=== PATIENT | female | born 1965 | race Caucasian/White ===

== ENCOUNTER 2017-01-07 16:33 | Emergency (ER) | payer BC, OTHER ==
[~2017-01-07] VITALS: Wt 99.0 kg
--- NOTE | 2017-01-07 18:04 | RADRPT ---
PROCEDURE: CT brain without contrast CLINICAL INDICATION: Headaches. Fall TECHNIQUE: A CT of the brain was performed utilizing axial sections from the skull base through th e vertex without contrast. Sagittal and coronal images were also reformatted. The exam CTDIvol = 43. 95 mGy and DLP = 630.20 mGy-cm. COMPARISON: None available FINDINGS: No acute intracranial hemorrhage is identified. There is no mass effect or midline shift. No extra -axial fluid collection is seen. The ventricles and sulci are within normal limits for size and con figuration. The density of the brain is within normal limits. Hansen-white differentiation is preser marianna. The osseous structures are unremarkable. The mastoid air cells and visualized paranasal sinuses are clear. RPTAT:HJJR IMPRESSION: Unremarkable noncontrast CT of the brain. Physician James Date Time Electronically viewed and signed by Physician James on 01/07/2017 18:03 /
[2017-01-07] MEDS ORDERED: IBUP800T25 PO (18:19)
--- NOTE | 2017-01-07 18:19 | ERD ---
ER Documentation Chief Complaint Date/Time DATE: 01/07/17 TIME: 18:18 Chief Complaint BILATERAL KNEE PAIN AFTER FALL HPI This is a 51-year-old female presents to the emergency room after ground level fall. The patient is complaining of pain in the back of her head. She denies any syncope or loss of consciousness. The patient states that she was able to ambulate after the fall and came to the ER for evaluation. She denies any radiation of her pain, headache, blurred vision or any blood thinners. ROS All systems reviewed and are negative except as per history of present illness. PMhx/Soc Medical and Surgical Hx: Unable to obtain Hx Alcohol Use: No Hx Substance Use: No Hx Tobacco Use: No Smoking Status: Never smoker Physical Exam Vitals Vital Signs Date Time Temp Pulse Resp B/P Pulse Ox O2 Delivery O2 Flow Rate FiO2 01/07/17 16:35 98.0 87 19 136/83 99 Physical Exam Const: No acute distress Head: Atraumatic Eyes: Normal Conjunctiva ENT: Normal External Ears, Nose and Mouth. Neck: Full range of motion..~ No meningismus. Resp: Clear to auscultation bilaterally Cardio: Regular rate and rhythm, no murmurs Abd: Soft, non tender, non distended. Normal bowel sounds Skin: No petechiae or rashes Back: No midline or flank tenderness Ext: No cyanosis, or edema Neur: Awake and alert Psych: Normal Mood and Affect Procedures/MDM CT head without: No acute process This 51-year-old female presents to the emergency room for evaluation of pain in the back of her head after a ground-level fall where she tripped. The patient was ambulatory after she fell. She denies any loss of consciousness, was not on any blood thinners. My evaluation she was seen that she had pain in the back of her head. A CT of the head was obtained which does not show any skull fractures or any acute intracranial bleed. The patient is alert and oriented to person place and time. The patient will be discharged home with a prescription for Motrin for acute scalp contusion. Departure Diagnosis: Primary Impression: Fall with no significant injury Additional Impression: Closed head injury Condition: Stable JAKE NORTON DO January 07, 2017 18:19
== END 2017-01-07 18:33 | disposition home or self-care (01) ==
LOC: FTE 16:33
DX: S09.90XA Unspecified injury of head, initial encounter (principal); R51 Headache; W18.39XA Other fall on same level, initial encounter; Y92.9 Unspecified place or not applicable
CPT/HCPCS: 70450; Z7502

== ENCOUNTER 2017-10-31 17:13 | Emergency (ER) | END 2017-10-31 21:48 | disposition home or self-care (01) ==

== ENCOUNTER 2018-08-11 10:19 | Emergency (ER) | payer OTHER ==
[~2018-08-11] VITALS: Wt 99.9 kg
[~2018-08-11 10:19] MED LIST: BACL10TA PO; IBUP800T48 PO; NAPR-985 PO
[2018-08-11] MEDS ORDERED: IPRATROPIUM (NEB) 0.5 MG/2.5 ML AMP NEB STA (10:52)
[2018-08-11] MEDS ORDERED: ALBUTEROL 0.083% (NEB) 2.5 MG/3 ML AMP NEB STA (10:52)
[2018-08-11] MEDS ORDERED: AZIT250T PO (12:17)
[2018-08-11] MEDS ORDERED: BENZ-6 PO (12:17)
[2018-08-11] MEDS ORDERED: CEPASTAT LOZENGE MT ONE (12:30)
[2018-08-11 12:42] VITALS: BP 147/82; PULSE 86; RESP 20
[2018-08-11] MEDS ORDERED: BENZ1LOZ52 MM (12:52)
--- NOTE | 2018-08-11 12:58 | ERD ---
ER Documentation Chief Complaint Chief Complaint COUGH X 3 weeks HPI Patient is a 53-year-old female with a history of hypertension, DM type II, hyperlipidemia presents ER for concerns of a dry cough times 3 weeks. Patient also reports throat irritation. Patient denies any productive cough, chest pain, shortness of breath or loss of consciousness. Patient denies any hemoptysis. Patient denies any nausea, vomiting, abdominal pain or diarrhea. Patient denies any leg swelling. Patient denies recent travel. Patient does report other sick contacts at home. Patient reports any OTC concert with no alleviation of symptoms. ROS All systems reviewed and are negative except as per history of present illness. Medications Home Meds Active Scripts Benzocaine/Menthol* (Cepacol* Sore Throat Lozenges) 1 Each Lozenge, 1 EACH MM q2h PRN for SORE THROAT, #20 LOZENGE Prov:TIANA BLAIR PA-C 08/11/18 Benzonatate* (Tessalon Perle*) 100 Mg Capsule, 100 MG PO Q8H PRN for COUGH, #20 CAP Prov:TIANA BLAIR PA-C 08/11/18 Azithromycin* (Zithromax*) 250 Mg Tablet, 250 MG PO .ZPACK DIRECTED, #6 TAB TAKE 500 MG (2 TABS) THE FIRST DAY THEN 250 MG (1 TAB) DAYS 2-5 Prov:TIANA BLAIR PA-C 08/11/18 Naproxen* (Naprosyn*) 500 Mg Tablet, 500 MG PO BID PRN for PAIN AND/OR INFLAMMATION for 5 Days, #10 TAB Prov:JAIME SERRATO MD 10/31/17 Baclofen* (Baclofen*) 10 Mg Tablet, 10 MG PO Q8 for MUSCLE SPASMS, #14 TAB Prov:JAIME SERRATO MD 10/31/17 Ibuprofen* (Motrin*) 800 Mg Tab, 800 MG PO Q6H PRN for PAIN AND OR ELEVATED TEMP, #30 TAB Prov:JAKE NORTON DO 01/07/17 Allergies Allergies: Coded Allergies: No Known Allergy (Unverified , 10/31/17) PMhx/Soc History of Surgery: No Anesthesia Reaction: No Hx Neurological Disorder: No Hx Respiratory Disorders: No Hx Cardiac Disorders: No Hx Psychiatric Problems: No Hx Miscellaneous Medical Probl: Yes (diabetes type II) Hx Alcohol Use: No Hx Substance Use: No Hx Tobacco Use: No FmHx Family History: No diabetes Physical Exam Vitals Vital Signs Date Temp Pulse Resp B/P (MAP) Pulse Ox O2 O2 Flow FiO2 Time Delivery Rate 08/11/18 97 Room Air 12:59 08/11/18 99.0 86 20 147/82 94 Room Air 12:42 (103) 08/11/18 79 22 98 21 11:14 08/11/18 98.1 82 20 159/72 98 10:20 (101) Physical Exam GENERAL: Well-developed, well-nourished female. Appears in no acute distress. HEAD: Normocephalic, atraumatic. EYES: Pupils are equally reactive bilaterally. EOMs grossly intact. No conjunctival erythema. ENT: Moist mucous membranes. No uvula deviation. No kissing tonsils. NECK: Supple. No meningismus. Normal range of motion of the neck. LUNG: Actively coughing, dry in nature. Coarse breath sounds. No abdominal retractions, nasal flaring, no tripoding. No respiratory distress. No wheezing. HEART: Regular rate and rhythm. No murmurs, rubs or gallops. EXTREMITIES: Equal pulses bilaterally. No peripheral clubbing, cyanosis or edema. No unilateral leg swelling. No pedal swelling bilaterally. NEUROLOGIC: Alert and oriented. Moving all four extremities without any difficulty. Normal speech. Steady gait. SKIN: Normal color. Warm and dry. No rashes or lesions. Results 24 hrs Current Medications Medications Dose Sig/Lee Start Time Status Last (Trade) Ordered Route PRN Stop Time Admin Dose Reason Admin Albuterol 5 mg ONCE STAT 08/11/18 DC 08/11/18 (Proventil NEB 10:52 11:14 0.083% (Neb)) 08/11/18 10:56 Ipratropium 1 mg ONCE STAT 08/11/18 DC 08/11/18 [place] NEB 10:52 11:14 (Atrovent 08/11/18 0.02% 10:56 (Neb)) Phenol 1 lozenge ONCE ONCE 08/11/18 DC 08/11/18 (Cepastat MT 12:30 12:53 Lozenge) 08/11/18 12:31 Procedures/MDM ED COURSE: The patient was stable throughout ED course. I kept the patient and/or family informed of laboratory and diagnostic imaging results throughout the ED course. DIAGNOSTIC IMAGING: Read by radiologist. Patient: PATRICK PIERCE : 1965 Age: 53 Sex: F MR #: [id number] DOS: 08/11/18 1052 Ordering MD: TIANA BLAIR PA-C Location: [facility] Room/Bed: PROCEDURE: XR Chest. CLINICAL INDICATION: Cough for 3 weeks. TECHNIQUE: Single frontal view. COMPARISON: None. FINDINGS: The lungs are clear. The heart size is normal. There is no pleural effusion. There is no pneumothorax. IMPRESSION: 1. Normal chest radiograph. RPTAT: QQ .Enzo Castro MD, Date Time Electronically viewed and signed by .Enzo Castro MD, MD on 08/11/2018 11:25 .R/ CC: TIANA BLAIR PA-C [phone] PROCEDURES: None. MEDICATIONS GIVEN: Albuterol, ipratropium Patient tolerated medication well with no adverse reactions. MEDICAL DECISION MAKING: This is a 53-year-old female with a past medical history of hypertension, DM type II, hyperlipidemia presents ER for concerns of dry cough times 3 weeks.. Patient was afebrile. Patient was not hypoxic. Patient denied recent travel. Cardiac exam was normal. On exam, patient was noted to be actively coughing, dry in nature. Patient has no leg swelling. Patient was given albuterol/ipratropium breathing treatment here. Upon reexamination, patient improvement breath sounds. Patient felt as if she could breathe easier. Patient continued to have some mild dry cough. Patient was given a throat loss injures which did help with her cough. Patient states she felt as if her throat was extremely dry. Chest x-ray was unremarkable. See formal report above. Given these findings, the patient's presentation is most consistent with acute bronchitis. I have a much lower clinical concern for acute coronary syndrome, pneumothorax, pneumonia, TB, influenza, pertussis, GERD, allergic rhinitis, CHF. Patient was nontoxic, non-ill appearing prior to discharge. PRESCRIPTIONS: Tessalon Perles, cepacol throat lozenges, Zpak DISCHARGE: At this time, patient is stable for discharge and outpatient management. I have instructed the patient to follow-up with his/her primary care physician in 1-2 days. If symptoms persist, patient may need to see a specialist for further examinations and testing. I have instructed the patient to promptly return to the ER at any time for any new or worsening symptoms including increased increased pain, fever, nausea, vomiting, numbness, shortness of breath, weakness, ongoing wheezing, retractions or LOC. The patient and/or family expressed understanding of and agreement with this plan. All questions were answered. Home care instructions were provided. Disclaimer: Inadvertent spelling and grammatical errors are likely due to EHR/dictation software use and do not reflect on the overall quality of patient care. Also, please note that the electronic time recorded on this note does not necessarily reflect the actual time of the patient encounter. Departure Diagnosis: Primary Impression: Bronchitis Condition: Stable Patient Instructions: Bronchitis, Antiobiotic Treatment (Adult) Additional Instructions: Call your primary care doctor TOMORROW for an appointment during the next 1-2 days.See the doctor sooner or return here if your condition worsens before your appointment time. TIANA BLAIR PA-C Aug 11, 2018 12:58
== END 2018-08-11 12:54 | disposition home or self-care (01) ==
LOC: FTE 10:19
DX: J40 Bronchitis, not specified as acute or chronic (principal); E11.9 Type 2 diabetes mellitus without complications; I10 Essential (primary) hypertension
CPT/HCPCS: 71045; 94664; Z7610

== ENCOUNTER 2019-03-09 09:05 | Emergency (ER) | payer OTHER ==
[~2019-03-09] VITALS: Ht 160 cm; Wt 100.5 kg
[~2019-03-09 09:05] MED LIST changes: +AZIT250T PO; +BENZ-6 PO; +BENZ1LOZ52 MM
[2019-03-09 09:06] VITALS: Ht 160 cm; Wt 100.5 kg
[2019-03-09] MEDS ORDERED: LIDOCAINE/MYLANTA 40 ML BTL PO STA (09:31)
[2019-03-09] MEDS ORDERED: FAMOTIDINE 20 MG TAB PO STA (09:31)
[2019-03-09] MEDS ORDERED: BELLADONNA/PHENOBARBITAL TAB PO STA (09:31)
[2019-03-09] MEDS ORDERED: IBUP800T48 PO (10:27)
--- NOTE | 2019-03-09 10:31 | ERD ---
ER Documentation Chief Complaint Chief Complaint abdominal pain, vomiting and dizziness x 2 days HPI Translation services were utilized during this patient's encounter Language: Stateless Source: In person 53-year-old female history of morbid obesity, who presents to the emergency room with abdominal pain. The patient describes postprandial abdominal discomfort that is located in the epigastrium with associated dizziness. She denies any exertional symptoms chest pain or shortness of breath. She states that she ate a large piece of cake yesterday evening and woke up with worsening pain this morning. Patient denies any diarrhea or constipation. Mild nausea, one episode of nonbloody nonbilious emesis. Symptoms moderate currently. ROS All systems reviewed and are negative except as per history of present illness. Medications Home Meds Active Scripts Ibuprofen* (Motrin*) 800 Mg Tab, 800 MG PO Q6H PRN for PAIN AND OR ELEVATED TEMP, #30 TAB Prov:LEANNE CHANDLER MD 03/09/19 Benzocaine/Menthol* (Cepacol* Sore Throat Lozenges) 1 Each Lozenge, 1 EACH MM q2h PRN for SORE THROAT, #20 LOZENGE Prov:TIANA BLAIR PA-C 08/11/18 Benzonatate* (Tessalon Perle*) 100 Mg Capsule, 100 MG PO Q8H PRN for COUGH, #20 CAP Prov:TIANA BLAIR PA-C 08/11/18 Azithromycin* (Zithromax*) 250 Mg Tablet, 250 MG PO .ZPACK DIRECTED, #6 TAB TAKE 500 MG (2 TABS) THE FIRST DAY THEN 250 MG (1 TAB) DAYS 2-5 Prov:TIANA BLAIR PA-C 08/11/18 Naproxen* (Naprosyn*) 500 Mg Tablet, 500 MG PO BID PRN for PAIN AND/OR INFLAMMATION for 5 Days, #10 TAB Prov:JAIME SERRATO MD 10/31/17 Baclofen* (Baclofen*) 10 Mg Tablet, 10 MG PO Q8 for MUSCLE SPASMS, #14 TAB Prov:JAIME SERRATO MD 10/31/17 Ibuprofen* (Motrin*) 800 Mg Tab, 800 MG PO Q6H PRN for PAIN AND OR ELEVATED TEMP, #30 TAB Prov:JAKE NORTON DO 01/07/17 Allergies Allergies: Coded Allergies: No Known Allergy (Unverified , 03/09/19) PMhx/Soc History of Surgery: No Anesthesia Reaction: No Hx Neurological Disorder: No Hx Respiratory Disorders: No Hx Cardiac Disorders: Yes (HTN) Hx Psychiatric Problems: Yes (schizophrenia) Hx Miscellaneous Medical Probl: Yes (diabetes type II) Hx Alcohol Use: No Hx Substance Use: No Hx Tobacco Use: No Smoking Status: Never smoker FmHx Family History: No diabetes Physical Exam Vitals Vital Signs Date Temp Pulse Resp B/P (MAP) Pulse Ox O2 O2 Flow FiO2 Time Delivery Rate 03/09/19 97.4 71 18 99 Room Air 09:26 03/09/19 97.4 73 18 167/90 99 09:06 (115) Physical Exam General: Well developed, well nourished, no acute distress Head: Normocephalic, atraumatic. Eyes: Pupils equally reactive, EOM intact ENT: Moist mucous membranes Neck: Supple, no lymphadenopathy Respiratory: Lungs clear bilaterally, no distress Cardiovascular: RRR, no murmurs, rubs, or gallops Abdominal: Soft, mild epigastric abdominal tenderness, no rebound or guarding, negative Duarte sign, no tenderness to McBurney's point, non-distended, no peritoneal signs : Deferred MSK: No edema, no unilateral swelling, 5/5 strength Neurologic: Alert and oriented, moving all extremities, normal speech, no focal weakness, no cerebellar signs Skin: No rash Psych: Normal mood Result Diagram: 03/09/19 0930 03/09/19 0930 Results 24 hrs Laboratory Tests Test 03/09/19 09:30 White Blood Count 10.0 10^3/ul Red Blood Count 4.58 10^6/ul Hemoglobin 12.4 g/dl Hematocrit 38.7 % Mean Corpuscular Volume 84.5 fl Mean Corpuscular Hemoglobin 27.1 pg Mean Corpuscular Hemoglobin Concent 32.0 g/dl Red Cell Distribution Width 14.4 % Platelet Count 227 10^3/UL Mean Platelet Volume 11.1 fl Immature Granulocytes % 0.500 % Neutrophils % 84.9 % Lymphocytes % 11.4 % Monocytes % 2.7 % Eosinophils % 0.2 % Basophils % 0.3 % Nucleated Red Blood Cells % 0.0 /100WBC Immature Granulocytes # 0.050 10^3/ul Neutrophils # 8.5 10^3/ul Lymphocytes # 1.1 10^3/ul Monocytes # 0.3 10^3/ul Eosinophils # 0.0 10^3/ul Basophils # 0.0 10^3/ul Nucleated Red Blood Cells # 0.0 10^3/ul Sodium Level 141 mmol/L Potassium Level 4.0 mmol/L Chloride Level 102 mmol/L Carbon Dioxide Level 28 mmol/L Anion Gap 11 Blood Urea Nitrogen 21 mg/dl Creatinine 0.76 mg/dl Est Glomerular Filtrat Rate mL/min > 60 mL/min Glucose Level 208 mg/dl Calcium Level 10.1 mg/dl Total Bilirubin 0.3 mg/dl Direct Bilirubin 0.00 mg/dl Indirect Bilirubin 0.3 mg/dl Aspartate Amino Transf (AST/SGOT) 24 IU/L Alanine Aminotransferase (ALT/SGPT) 30 IU/L Alkaline Phosphatase 109 IU/L Troponin I < 0.012 ng/ml Total Protein 7.7 g/dl Albumin 4.6 g/dl Globulin 3.10 g/dl Albumin/Globulin Ratio 1.48 Lipase 63 U/L Current Medications Medications Dose Sig/Lee Start Time Status Last (Trade) Ordered Route PRN Stop Time Admin Dose Reason Admin Famotidine 20 mg ONCE STAT 03/09/19 DC 03/09/19 (Pepcid) PO 09:31 09:44 03/09/19 09:32 40 ml ONCE STAT 03/09/19 DC 03/09/19 Miscellaneous PO 09:31 09:45 Medication 03/09/19 09:32 (Gi Cocktail (2)) [place]/ 2 tab ONCE STAT 03/09/19 DC 03/09/19 Phenobarbital PO 09:31 09:45 () 03/09/19 09:32 Procedures/MDM EKG, MONITORS, & DIAGNOSTIC IMAGING: EKG: I reviewed and interpreted a 12-lead EKG. Rhythm: Normal sinus rhythm ST Changes: No contiguous ST segment elevations T waves: No contiguous T wave inversions Impression: No evidence of acute cardiac ischemia Ultrasound of the gallbladder: Cholelithiasis per radiologist read LAB INTERPRETATION: I reviewed the laboratory testing and it shows no evidence of acute process MEDICAL DECISION MAKING: Patient presents with postprandial epigastric abdominal discomfort consistent with likely dyspepsia versus gastritis. She needed a large food bolus yesterday evening. Also consider possible hepatobiliary process. Low concern for acute cholecystitis. Very low pretest probability for cardiac etiology but given the patient's body habitus EKG and troponin would be reasonable. Greater than 6 hours of symptoms. Patient otherwise has a benign abdominal exam without concern for appendicitis or bowel obstruction. No indication for CT imaging of the abdomen pelvis. ER COURSE: * Patient received IV fluids and GI cocktail. Symptoms improving. Laboratory testing reassuring, gallbladder ultrasound shows gallstones. No evidence of acute cholecystitis. * At this point the patient can be safely discharged home. Presumed biliary colic. Patient needs to follow-up with general surgeon. Return precautions including fever and uncontrolled pain discussed and understood. CONSULTATION: None DISPOSITION PLAN: The patient does not have an identifiable emergent medical condition that warrants inpatient hospitalization at this time. The patient is deemed safe for discharge with outpatient follow-up. We discussed follow up with the patient's primary care doctor within 24 to 48 hours as needed. We also discussed return to the emergency room for worsening symptoms or worsening condition. Outpatient referral: General surgeon Discharge Medications: Motrin Departure Diagnosis: Primary Impression: Biliary colic Additional Impressions: Abdominal pain Abdominal location: epigastric Qualified Codes: R10.13 - Epigastric pain Morbid obesity Condition: Stable Patient Instructions: Biliary Colic With Gallstone (Confirmed) Referrals: [facility] () Ustoribio se rojas hecho un examen mdico de control que le indica que no est en abner condicin que requiera tratamiento urgente en el Departamento de Emergencia. Un estudio ms profundo y el tratamiento de suarez condicin pueden esperar sin ningn riesgo hasta que usted sea atendida/o en el consultorio de suarez mdico o abner clnica. Es responsabilidad suya arreglar abner dotty para el seguimiento del maria luisa. MANEJO DE CONDICIONES NO URGENTES EN EL FUTURO 1) Si usted tiene un mdico de atencin primaria: Usted debera llamar a suarez mdico de atencin primaria antes de venir al departamento de emergencia. Despus de las horas de consultorio, suarez doctor o suarez asociado/a est disponible por telfono. El mdico o enfermero de janelle en el servicio telefnico puede asesorarle por ofelia medio para atender el problema, o maria luisa contrario se puede programar abner dotty. 2) Si usted no tiene un mdico de atencin primaria: Llame al mdico o clnica de referencia que aparece abajo jose guadalupe las horas de consultorio para hacer abner dotty para que le vean. CLINICAS: [facility] [phone] [facility] [phone] [facility] [phone] [address] [facility] [address] [place] [address] [phone] [facility] [place] [id number] [phone] [facility] [phone] [address] [facility]. [facility] () Usted se rojas hecho un examen mdico de control que le indica que no est en abner condicin que requiera tratamiento urgente en el Departamento de Emergencia. Un estudio ms profundo y el tratamiento de suarez condicin pueden esperar sin ningn riesgo hasta que usted sea atendida/o en el consultorio de suarez mdico o abner clnica. Es responsabilidad suya arreglar abner dotty para el seguimiento del maria luisa. MANEJO DE CONDICIONES NO URGENTES EN EL FUTURO 1) Si usted tiene un mdico de atencin primaria: Usted debera llamar a suarez mdico de atencin primaria antes de venir al departamento de emergencia. Despus de las horas de consultorio, suarez doctor o suarez asociado/a est disponible por telfono. El mdico o enfermero de janelle en el servicio telefnico puede asesorarle por ofelia medio para atender el problema, o maria luisa contrario se puede programar abner dotty. 2) Si usted no tiene un mdico de atencin primaria: Llame al mdico o condado institucions de referencia que aparece abajo jose guadalupe las horas de consultorio para hacer abner dotty para que le vean. SI USTED NO PUEDE PAGAR PARA ISAIAS UN MEDICO puede ir a: [facility] [address] [place] [address] [facility] [address] [place] [address] [facility] [address] [place] [address] [address] [facility] [address] [place], [place] [id number] Additional Instructions: Return for fever or uncontrolled pain. Llame al doctor nombrado abajo (Referral Sources) MAANA y maria abner DOTTY PARA DENTRO DE ABNER SEMANA. Dgale a la secretaria que nosotros le instruimos hacer esta dotty.Avise o llame si suarez condicin se empeora antes de la dotty. LEANNE CHANDLER MD Mar 09, 2019 10:31
[2019-03-09 10:42] VITALS: BP 112/57; PULSE 73; RESP 18
== END 2019-03-09 10:45 | disposition home or self-care (01) ==
LOC: E/R 09:05
DX: K80.50 Calculus of bile duct without cholangitis or cholecystitis without obstruction (principal); E66.01 Morbid (severe) obesity due to excess calories; I10 Essential (primary) hypertension; E11.9 Type 2 diabetes mellitus without complications; Z68.39 Body mass index [BMI] 39.0-39.9, adult
CPT/HCPCS: 36415; 76705; 80053; 83690; 84484; 85025; 93005; Z7502; Z7610